=== PATIENT | female | born 1960 | race Caucasian/White ===

== ENCOUNTER 2021-03-15 19:22 | Emergency (ER) | payer OTHER | END 2021-03-15 21:23 | disposition home or self-care (01) | LOC: FER 19:22 | DX: S61.210A Laceration without foreign body of right index finger without damage to nail, initial encounter (principal); S61.011A Laceration without foreign body of right thumb without damage to nail, initial encounter; Z23 Encounter for immunization; W25.XXXA Contact with sharp glass, initial encounter; Y92.009 Unspecified place in unspecified non-institutional (private) residence as the place of occurrence of the external cause | CPT/HCPCS: 90471; 90715 ==

== ENCOUNTER 2022-01-29 22:35 | Emergency (ER) | payer OTHER ==
[2022-01-30] MEDS ORDERED: NORCO 5-325 TA1 EACH PO (02:19)
[2022-01-30] MEDS ORDERED: ONDANSETRON ODT4 MG PO (02:19)
== END 2022-01-30 02:31 | disposition home or self-care (01) ==
LOC: FER 22:35
DX: M54.42 Lumbago with sciatica, left side (principal); Z91.040 Latex allergy status
CPT/HCPCS: 99283